=== PATIENT | female | born 1995 | race Caucasian/White ===

== ENCOUNTER 2024-07-18 22:01 | Emergency (ER) | payer MEDICAID, OTHER ==
[~2024-07-18] VITALS: Ht 160 cm; Wt 111.0 kg
[~2024-07-18 22:01] MED LIST: PREN1TAB78 MT
[2024-07-18 22:11] VITALS: O2SAT 100
[2024-07-18 22:32] LABS: BASOPHILS % 0.9 % (0.0-2.0); CLARITY URINE CLEAR (CLEAR); COLOR URINE YELLOW (YELLOW); DIFFERENTIAL COMMENT 0; EOSINOPHILS % 1.7 % (0.0-5.0); GLUCOSE URINE NEGATIVE (NEGATIVE); HEMATOCRIT. 29.7 % (36.0-48.0); HEMOGLOBIN. 9.6 g/dL (12.0-16.0); KETONES URINE NEGATIVE (NEGATIVE); LEUKOCYTE ESTERASE URINE TRACE (NEGATIVE); LYMPHOCYTES % 21.6 % (20.0-50.0); MEAN CORPUSCULAR HEMOGLOBIN 24.3 pg (28.0-32.0); MEAN CORPUSCULAR HGB CONC 32.3 g/dL (31.0-37.0); MEAN CORPUSCULAR VOLUME 75.3 fL (81.0-99.0); MEAN PLATELET VOLUME 10.9 fl (7.4-10.4); MONOCYTES % 6.9 % (2.0-8.0); NEUTROPHILS % 68.9 % (40.0-76.0); NITRITE URINE NEGATIVE (NEGATIVE); OCCULT BLOOD URINE NEGATIVE (NEGATIVE); PLATELET 235 x1000/uL (130-400); PROTEIN URINE NEGATIVE (NEGATIVE); RED BLOOD CELL COUNT 3.95 mill/uL (4.2-5.4); RED CELL DISTRIBUTION WIDTH 15.4 % (11.6-14.6); WHITE BLOOD COUNT 10.3 x1000/uL (4.5-11.0)
[2024-07-18 22:52] LABS: CHLORIDE 108 mEq/L (98-107); POTASSIUM 4.2 mEq/L (3.5-5.1); SODIUM 136 mEq/L (136-145)
[2024-07-18 22:53] LABS: CARBON DIOXIDE 21 mEq/L (21-32)
[2024-07-18 22:54] LABS: CALCIUM 9.4 mg/dL (8.7-10.4)
[2024-07-18 22:59] LABS: CREATININE 0.5 mg/dL (0.6-1.0); GLUCOSE 75 mg/dL (70-105); UREA NITROGEN BLOOD 6 mg/dL (9-23)
[2024-07-18 23:12] LABS: BACTERIA URINE TRACE; RBC URINE 0-2 /hpf (0-2); SQUAMOUS EPITHELIAL CELL URINE 1+ /lpf (RARE/1+); WBC URINE 0-2 /hpf (0-2)
[2024-07-19 00:04] VITALS: BP 117/77; PULSE 69; RESP 20; TEMP 36.9; O2SAT 100
== END 2024-07-19 00:31 | disposition short-term general hospital (02) ==
LOC: ER 22:01
DX: O62.4 Hypertonic, incoordinate, and prolonged uterine contractions (principal); O13.3 Gestational [pregnancy-induced] hypertension without significant proteinuria, third trimester; Z85.850 Personal history of malignant neoplasm of thyroid; Z3A.37 37 weeks gestation of pregnancy
CPT/HCPCS: 36415; 76815; 80048; 81003; 85025; 86850; 86900; 99291